=== PATIENT | female | born 1970 | race Hispanic/Latino ===

== ENCOUNTER 2017-04-04 17:35 | Emergency (ER) | payer SELFPAY ==
[~2017-04-04] VITALS: Ht 170.2 cm; Wt 65.0 kg
[~2017-04-04 17:35] MED LIST: AUGMENTIN875TAB PO; LORTAB 5/3255 MG PO; MEDDOSEPAK PO; NO HOME MEDS; NORCO1 TA1 PO; PERCOCET 5/325M1 TAB PO
[2017-04-04 18:33] LABS: HEMATOCRIT 39.4 % (37.0-47.0); HEMOGLOBIN 13.2 g/dl (12.0-16.0); IMMATURE GRANULOCYTES 0.3 % (0.0-1.0); MEAN CELL VOLUME 86.4 fL CALC (80.0-100.0); MEAN CORPUSCULAR HGB 28.9 pG CALC (26.0-32.0); MEAN CORPUSCULAR HGB CONC 33.5 g/L CALC (32.0-36.0); NEUT# 7.97 thou/uL (2.00-7.15); RED BLOOD COUNT 4.56 mill/uL (4.20-5.60); RED CELL DISTRI WIDTH 13.5 % (11.5-15.5)
[2017-04-04 18:44] LABS: ALBUMIN 4.6 g/dL (3.2-5.0); ALKALINE PHOSPHATASE 66 u/l (38-126); ANION GAP 17 (6-22 (CALC)); BILIRUBIN, TOTAL 0.7 mg/dL (0.0-1.4); BUN 12 mg/dL (7-17); BUN/CREATININE RATIO 16 (12-20 (CALC)); CALCIUM 9.4 mg/dL (8.4-10.2); CARBON DIOXIDE 28 mmol/l (22-30); CHLORIDE 103 mmol/l (95-108); CREATININE 0.8 mg/dL (0.5-1.0); GFR > 60 ML/MIN (>=60 (CALC)); GFR FOR AFR.AMER. > 60 ML/MIN (>=60 (CALC)); GLUCOSE 104 mg/dL (65-105); SGOT/AST 16 u/l (14-36); SGPT/ALT 26 u/l (9-52); SODIUM 143 mmol/l (137-146); TOTAL PROTEIN 8.1 g/dL (6.3-8.2)
[2017-04-04] MEDS ORDERED: PREDNISONE50 MG PO (20:11)
[2017-04-04] MEDS ORDERED: PERCOCET 5/325M1 TAB PO (20:11)
[2017-04-04 20:55] VITALS: BP 187/108
== END 2017-04-04 20:55 | disposition home or self-care (01) | DRG 552 ==
LOC: ED 17:35
PROVIDERS: Emergency Medicine
DX: M47.22 Other spondylosis with radiculopathy, cervical region (principal); M25.78 Osteophyte, vertebrae; M54.2 Cervicalgia; R51 Headache

== ENCOUNTER 2017-05-15 00:08 | Emergency (ER) | payer MEDICAID ==
[~2017-05-15] VITALS: Ht 170.2 cm; Wt 83.4 kg
[~2017-05-15 00:08] MED LIST changes: +PREDNISONE50 MG PO
[2017-05-15] MEDS ORDERED: ENALAPRIL5 MG PO ×2 (00:28→13:42)
[2017-05-15 01:08] VITALS: BP 175/122
[2017-05-15] MEDS ORDERED: PERCOCET 5/325M1 TAB PO (13:24)
[2017-05-15] MEDS ORDERED: FLEXERIL PO (13:24)
== END 2017-05-15 01:08 | disposition left against medical advice (07) | DRG 951 ==
LOC: ED 00:13 → LWOBS 00:56
DX: Z91.19 Patient's noncompliance with other medical treatment and regimen (principal)

== ENCOUNTER 2017-05-15 12:38 | Emergency (ER) | payer OTHER ==
[~2017-05-15] VITALS: Ht 170.2 cm; Wt 80.0 kg
[~2017-05-15 12:38] MED LIST changes: +ENALAPRIL5 MG PO
[2017-05-15] MEDS ORDERED: FLEXERIL PO (13:24)
[2017-05-15] MEDS ORDERED: PERCOCET 5/325M1 TAB PO (13:24)
[2017-05-15] MEDS ORDERED: ENALAPRIL5 MG PO (13:42)
[2017-05-15 13:55] VITALS: BP 180/86
== END 2017-05-15 14:02 | disposition home or self-care (01) | DRG 92 ==
LOC: ED 12:38
DX: G89.29 Other chronic pain (principal); M50.00 Cervical disc disorder with myelopathy, unspecified cervical region

== ENCOUNTER 2017-06-14 15:42 | Emergency (ER) | payer MEDICAID ==
[~2017-06-14] VITALS: Ht 170.2 cm; Wt 80.0 kg
[~2017-06-14 15:42] MED LIST changes: +FLEXERIL PO
[2017-06-14 16:45] LABS: HEMATOCRIT 37.4 % (37.0-47.0); HEMOGLOBIN 12.5 g/dl (12.0-16.0); IMMATURE GRANULOCYTES 0.3 % (0.0-1.0); MEAN CORPUSCULAR HGB 29.4 pG CALC (26.0-32.0); MEAN CORPUSCULAR HGB CONC 33.4 g/L CALC (32.0-36.0); NEUT# 6.2 thou/uL (2.00-7.15); RED BLOOD COUNT 4.25 mill/uL (4.20-5.60); RED CELL DISTRI WIDTH 13.2 % (11.5-15.5)
[2017-06-14] MEDS ORDERED: AMLODIPINE10 MG PO (16:55)
[2017-06-14 17:05] LABS: ALBUMIN 4.5 g/dL (3.2-5.0); ALKALINE PHOSPHATASE 55 u/l (38-126); ANION GAP 15 (6-22 (CALC)); BILIRUBIN, TOTAL 0.5 mg/dL (0.0-1.4); BUN 11 mg/dL (7-17); BUN/CREATININE RATIO 14 (12-20 (CALC)); CALCIUM 9.1 mg/dL (8.4-10.2); CARBON DIOXIDE 26 mmol/l (22-30); CHLORIDE 105 mmol/l (95-108); CREATININE 0.8 mg/dL (0.5-1.0); GFR > 60 ML/MIN (>=60 (CALC)); GFR FOR AFR.AMER. > 60 ML/MIN (>=60 (CALC)); GLUCOSE 96 mg/dL (65-105); POTASSIUM 3.6 mmol/l (3.5-5.1); SGOT/AST 19 u/l (14-36); SGPT/ALT 30 u/l (9-52); SODIUM 143 mmol/l (137-146)
[2017-06-14 17:17] LABS: MYOGLOBIN 32 ng/mL (0 - 62)
[2017-06-14 17:24] VITALS: BP 180/84
== END 2017-06-14 17:29 | disposition home or self-care (01) | DRG 305 ==
LOC: ED 15:42
PROVIDERS: Emergency Medicine
DX: I16.0 Hypertensive urgency (principal); R42 Dizziness and giddiness; R06.02 Shortness of breath

== ENCOUNTER 2019-12-11 | Emergency (ER) | payer OTHER, MEDICAID ==
[~2019-12-11] MED LIST changes: +AMLODIPINE10 MG PO
[2019-12-11] MEDS ORDERED: TORADOL PO (23:46)
[2019-12-11] MEDS ORDERED: ATIVAN0.5 MG PO (23:46)
== END 2019-12-12 00:40 | disposition home or self-care (01) | DRG 552 ==
DX: S16.1XXA Strain of muscle, fascia and tendon at neck level, initial encounter (principal); F43.11 Post-traumatic stress disorder, acute; V40.5XXA Car driver injured in collision with pedestrian or animal in traffic accident, initial encounter
CPT/HCPCS: J2060